=== PATIENT | female | born 1950 | race Caucasian/White ===

== ENCOUNTER → 2018-12-15 | Outpatient (CLI) | payer MEDICARE, OTHER ==
[2018-12-15 13:44] LABS: Protein, Urine Random <5.0 mg/dL (0.0-11.9)
[2018-12-15 14:04] LABS: Red Blood Cells, Urine 0-2 /hpf (0-2); White Blood Cells, Urine 0-2 /hpf (0-5)
[2018-12-15 14:05] LABS: Bacteria Rare /hpf; Squamous Epithelial Cells Rare /hpf (Few)
== END | disposition home or self-care (01) ==
LOC: LAB SHORT 12:56 → LAB 12:56
PROVIDERS: Internal Medicine
DX: N18.3 Chronic kidney disease, stage 3 (moderate) (principal)
CPT/HCPCS: 81015; 82570; 84156

== ENCOUNTER → 2021-04-11 | Outpatient (CLI) | payer MEDICARE ==
[2021-04-11 16:24] LABS: Alanine Aminotransfer (ALT/SGP 37 U/L (12-78); Albumin, Blood 3.7 g/dL (3.4-5.0); Albumin/Globulin Ratio 0.8 (0.8-1.8); Alk Phos 50 U/L (50-136); Anion Gap 3 mmol/L (6-16); Aspartate Aminotrans (AST/SGOT 31 U/L (12-37); Bilirubin, Total 0.4 mg/dL (0.1-1.0); Blood Urea Nitrogen 10 mg/dL (8-24); Bun/Creatinine Ratio 11.5 (12.0-20.0); CO2, Blood 27 mmol/L (21-32); Calcium, Blood 9.4 mg/dL (8.5-10.1); Chloride, Blood 109 mmol/L (98-108); Creatinine, Blood 0.87 mg/dL (0.40-1.00); Globulin, Blood 4.7 g/dL (2.2-4.0); Glomerular Filtration Rate >60 (60-); Glucose, Blood 96 mg/dL (70-99); Potassium, Blood 4.3 mmol/L (3.5-5.5); Sodium, Blood 139 mmol/L (136-145); Thyroid Stimulating Hormone 0.215 uIU/mL (0.360-4.800); Total Protein, Blood 8.4 g/dL (6.4-8.2)
== END | disposition home or self-care (01) ==
LOC: LAB 15:04 → LAB SHORT 15:04
PROVIDERS: Family Medicine
DX: I12.9 Hypertensive chronic kidney disease with stage 1 through stage 4 chronic kidney disease, or unspecified chronic kidney disease (principal); N18.2 Chronic kidney disease, stage 2 (mild); E03.9 Hypothyroidism, unspecified; E78.5 Hyperlipidemia, unspecified
CPT/HCPCS: 80053; 82043; 84439; 84443

== ENCOUNTER → 2022-02-06 | Outpatient (CLI) | payer MEDICARE | END | disposition home or self-care (01) | LOC: LAB SHORT 16:00 | DX: E03.9 Hypothyroidism, unspecified (principal) | CPT/HCPCS: 84443 ==

== ENCOUNTER → 2022-11-12 | Outpatient (CLI) | payer MEDICARE, OTHER ==
[2022-11-12 13:44] LABS: BASOPHILS ABSOLUTE AUTO 0.08 K/mm3 (0.00-0.23); BASOPHILS PERCENT AUTO 1 % (0-2); EOSINOPHILS ABSOLUTE AUTO 0.77 K/mm3 (0.00-0.68); EOSINOPHILS PERCENT AUTO 9 % (0-6); Hematocrit 39.9 % (33.0-51.0); Hemoglobin 12.8 g/dL (11.5-16.0); IMMATURE GRAN ABSOLUTE AUTO 0.02 K/mm3 (0.00-0.10); IMMATURE GRAN PERCENT AUTO 0 % (0-1); LYMPHOCYTES ABSOLUTE AUTO 2.42 K/mm3 (0.84-5.20); LYMPHOCYTES PERCENT AUTO 28 % (21-46); MONOCYTES ABSOLUTE AUTO 0.85 K/mm3 (0.16-1.47); MONOCYTES PERCENT AUTO 10 % (4-13); Mean Corpuscular HGB 30.1 pg (26.0-34.0); Mean Corpuscular HGB Conc 32.1 g/dL (31.5-36.5); Mean Corpuscular Volume 94 fL (80-100); NEUTROPHILS ABSOLUTE AUTO 4.64 K/mm3 (1.96-9.15); NEUTROPHILS PERCENT AUTO 53 % (41-73); Platelet Count 251 K/mm3 (150-400); RDW Standard Deviation 44.6 fL (35.1-46.3); Red Blood Cell Count 4.25 M/mm3 (3.80-5.20); White Blood Cell Count 8.78 K/mm3 (4.00-11.30)
== END | disposition home or self-care (01) ==
LOC: LAB SHORT 12:01 → LAB 12:01
PROVIDERS: Nurse Practitioner Family
DX: I10 Essential (primary) hypertension (principal)
CPT/HCPCS: 85025

== ENCOUNTER 2023-01-07 08:46 | Day surgery (SDC) | payer MEDICARE, OTHER ==
[~2023-01-07] VITALS: Ht 160 cm; Wt 69.6 kg
[2023-01-07] VITALS (14 sets, daily range): BP systolic 81–141; BP diastolic 38–75
[~2023-01-07 08:46] MED LIST: Crestor20 MG PO; EUTHYROX75 MCG PO; FENO48 PO; LOSA50 PO; SPIR25 PO; UBID100 PO
[2023-01-07] MEDS ORDERED: Calcium Carbon500 MG PO (09:35)
[2023-01-07] MEDS ORDERED: ACETAMINOPHEN500 MG PO (09:36)
--- NOTE | 2023-01-07 09:46 | NUR ---
PATIENT REPORTS HAVING A RIDE ARRANGED WITH HER SON, CAHRLY.
--- NOTE | 2023-01-07 10:20 | NUR ---
01/07/23 1020 Tyler Corrales HISTORY, CHART, MEDICATIONS AND ALLERGIES REVIEWED BEFORE START OF PROCEDURE. PATIENT CONFIRMS NPO STATUS AND AGREES WITH SCHEDULED PROCEDURE. 3-LEAD EKG REVIEWED WITH PHYSICIAN PRIOR TO START OF PROCEDURE. MONITOR INTACT WITH CONTINUOUS PULSE OXIMETRY,CAPNOGRAPHY, 3-LEAD EKG, INTERMITTENT BP. SUPPLEMENTAL O2 TO BE TITRATED THROUGHOUT PROCEDURE TO MAINTAIN O2 SATURATION ABOVE 90%. PATIENT DETERMINED TO BE ASA APPROPRIATE FOR PROPOFOL SEDATION PRIOR TO START OF PROCEDURE BY
--- NOTE | 2023-01-07 10:58 | NUR ---
DISCHARGE SUMMARY PT A&OX4, VSS/RA, YVONNE PO, AMB IND/DRESSED SELF, DENIES PAIN, DENIES NEED TO VOID, IV DC'D. DC INS PROVIDED. PT REP UNDERSTANDING THOSE INSTRUCTIONS INCLUDING NO FU APPT, 5 YR SCOPE, WHEN TO CALL THE DRSonja LEFT VIA WC WITH DC VOL TO GO HOME WITH BRIQUETTER OPERATOR/CHARLY, WITH DC INS.
== END 2023-01-07 22:43 | disposition home or self-care (01) ==
LOC: ORSCMMR 08:46 → ORD 10:00 → ORSCMMR 10:00
PROVIDERS: Internal Medicine Gastroenterology
PROC: 0DJD8ZZ Inspection of Lower Intestinal Tract, Via Natural or Artificial Opening Endoscopic (ICD-10-PCS; principal; 2023-01-07 10:00)
DX: K62.5 Hemorrhage of anus and rectum (principal); K64.8 Other hemorrhoids; K57.30 Diverticulosis of large intestine without perforation or abscess without bleeding; I10 Essential (primary) hypertension; E78.00 Pure hypercholesterolemia, unspecified; E03.9 Hypothyroidism, unspecified; Z87.891 Personal history of nicotine dependence; Z79.899 Other long term (current) drug therapy
CPT/HCPCS: J2704; J7120

== ENCOUNTER 2023-01-15 00:20 | Inpatient (IN) | payer MEDICARE, OTHER ==
[~2023-01-15] VITALS: Ht 162.6 cm; Wt 73.5 kg
[~2023-01-15 00:20] MED LIST changes: +ACETAMINOPHEN500 MG PO; +Calcium Carbon500 MG PO
[2023-01-15 07:11] LABS: Albumin, Blood 3.6 g/dL (3.4-5.0); Albumin/Globulin Ratio 0.8 (0.8-1.8); BASOPHILS ABSOLUTE AUTO 0.08 K/mm3 (0.00-0.23); BASOPHILS PERCENT AUTO 1 % (0-2); Bilirubin, Total 0.4 mg/dL (0.1-1.0); Bun/Creatinine Ratio 16.7 (12.0-20.0); Calcium, Blood 10.9 mg/dL (8.5-10.1); Creatinine, Blood 0.9 mg/dL (0.40-1.00); EOSINOPHILS ABSOLUTE AUTO 0.73 K/mm3 (0.00-0.68); EOSINOPHILS PERCENT AUTO 5 % (0-6); Globulin, Blood 4.6 g/dL (2.2-4.0); Hematocrit 40.1 % (33.0-51.0); Hemoglobin 13.6 g/dL (11.5-16.0); IMMATURE GRAN ABSOLUTE AUTO 0.06 K/mm3 (0.00-0.10); IMMATURE GRAN PERCENT AUTO 0 % (0-1); LYMPHOCYTES PERCENT AUTO 24 % (21-46); MONOCYTES ABSOLUTE AUTO 1.25 K/mm3 (0.16-1.47); MONOCYTES PERCENT AUTO 9 % (4-13); Mean Corpuscular HGB Conc 33.9 g/dL (31.5-36.5); Mean Corpuscular Volume 89 fL (80-100); Mean Platelet Volume 9.6 fL (9.1-12.4); NEUTROPHILS ABSOLUTE AUTO 9.15 K/mm3 (1.96-9.15); NEUTROPHILS PERCENT AUTO 62 % (41-73); Platelet Count 252 K/mm3 (150-400); Potassium, Blood 3.9 mmol/L (3.5-5.5); RDW Coefficient Variation 13.2 % (11.7-14.2); RDW Standard Deviation 43.4 fL (35.1-46.3); Red Blood Cell Count 4.53 M/mm3 (3.80-5.20); Total Protein, Blood 8.2 g/dL (6.4-8.2); White Blood Cell Count 14.77 K/mm3 (4.00-11.30)
[2023-01-15 08:08] VITALS: BP 154/96
[2023-01-15] MEDS ORDERED: OYSTER SHELL C500 MG PO (08:15)
[2023-01-15] MEDS ORDERED: Vitamin D1000 UNI1 PO (08:17)
[2023-01-15 10:51] LABS: Anti-Xa UFH, PHA Monitoring <0.10 IU/mL; International Normalized Ratio 1.02; Prothrombin Time Results 10.7 Sec (9.7-11.5)
[2023-01-15 13:46] VITALS: BP 128/89
[2023-01-15 16:39] VITALS: BP 123/89
--- NOTE | 2023-01-15 19:36 | NUR ---
PT ADMITTED TO PCU, ALERT ORIENTED AND ABLE TO USE CALL LIGHT FOR NEEDS. CARDIOLOGY CONSULTED AND IN TO SEE PT LATE IN THE AM. PLAN FOR ANGIOGRAM TOMORROW, NPO AFTER MIDNIGHT. PT HAS DENIED CHEST PAIN OR PRESSURE T/O THE SHIFT. HEPARIN GTT INFUSING PER MD ORDERS. SEE DOCUMENTED VS AND ASSESSMENT. REPORT GIVEN TO KRYS HYLTON SHIFT RN. CALL LIGHTIN REACH.
[2023-01-15 20:43] VITALS: BP 101/71
--- NOTE | 2023-01-15 21:30 | NUR ---
CALL TO PHYSICIAN NOTIFIED PHYSICIAN THAT PT DID NOT RECEIVE ORDERED MEDICATION DURING DAYSHIFT. CLARIFIED IF PHYSICIAN WANTED THIS RN TO ADMINISTER MISSED MEDICATION, ORDERS PLACED.
[2023-01-15 23:08] VITALS: BP 93/63
[2023-01-16] VITALS (18 sets, daily range): BP systolic 73–111; BP diastolic 37–74
[2023-01-16 01:34] LABS: BASOPHILS ABSOLUTE AUTO 0.07 K/mm3 (0.00-0.23); BASOPHILS PERCENT AUTO 1 % (0-2); EOSINOPHILS ABSOLUTE AUTO 0.56 K/mm3 (0.00-0.68); EOSINOPHILS PERCENT AUTO 4 % (0-6); Hematocrit 41.6 % (33.0-51.0); Hemoglobin 13.9 g/dL (11.5-16.0); IMMATURE GRAN ABSOLUTE AUTO 0.04 K/mm3 (0.00-0.10); IMMATURE GRAN PERCENT AUTO 0 % (0-1); LYMPHOCYTES ABSOLUTE AUTO 4.52 K/mm3 (0.84-5.20); LYMPHOCYTES PERCENT AUTO 32 % (21-46); MONOCYTES ABSOLUTE AUTO 1.23 K/mm3 (0.16-1.47); MONOCYTES PERCENT AUTO 9 % (4-13); Mean Corpuscular HGB 29.6 pg (26.0-34.0); Mean Corpuscular HGB Conc 33.4 g/dL (31.5-36.5); Mean Corpuscular Volume 89 fL (80-100); Mean Platelet Volume 9.8 fL (9.1-12.4); NEUTROPHILS ABSOLUTE AUTO 7.86 K/mm3 (1.96-9.15); NEUTROPHILS PERCENT AUTO 55 % (41-73); Platelet Count 250 K/mm3 (150-400); RDW Coefficient Variation 13.2 % (11.7-14.2); RDW Standard Deviation 43.1 fL (35.1-46.3); White Blood Cell Count 14.28 K/mm3 (4.00-11.30)
[2023-01-16 02:00] LABS: Alanine Aminotransfer (ALT/SGP 21 U/L (12-78); Albumin, Blood 3.2 g/dL (3.4-5.0); Albumin/Globulin Ratio 0.7 (0.8-1.8); Alk Phos 46 U/L (50-136); Anion Gap 7 mmol/L (6-16); Aspartate Aminotrans (AST/SGOT 33 U/L (12-37); Bilirubin, Total 0.5 mg/dL (0.1-1.0); Blood Urea Nitrogen 13 mg/dL (8-24); Bun/Creatinine Ratio 15.2 (12.0-20.0); CHOL/HDL RATIO 2.9; CO2, Blood 23 mmol/L (21-32); Calcium, Blood 9.2 mg/dL (8.5-10.1); Chloride, Blood 104 mmol/L (98-108); Cholesterol 100 mg/dL (50-200); Creatinine, Blood 0.86 mg/dL (0.40-1.00); Globulin, Blood 4.5 g/dL (2.2-4.0); Glomerular Filtration Rate 72 (60-); Glucose, Blood 104 mg/dL (70-99); HDL Cholesterol 34 mg/dL (>39); LDL/HDL RATIO 1.2; Low Density Lipoprotein Chol 39 mg/dL (0-110); Potassium, Blood 3.9 mmol/L (3.5-5.5); Sodium, Blood 134 mmol/L (136-145); Total Protein, Blood 7.7 g/dL (6.4-8.2); Triglycerides 134 mg/dL (30-160); Very Low Density Lipoprot Chol 26 mg/dL (6-32)
--- NOTE | 2023-01-16 04:35 | NUR ---
SHIFT SUMMARY PT A&Ox4, CALLS AND COMMUNICATES NEEDS APPROPRIATELY. BP STABLE, SINUS 70-90's, DENIES CP/PRESSURE. SpO2> 92% RA, DENIES SOB. PT WITH C/O NAUSEA, NO VOMITING, MEDICATED PER EMAR. SBA IN ROOM. CONTINENT OF URINE AND BOWEL. HEPARIN gtt INFUSING PER EMAR, MANAGED BY PHARMACY. NPO AT 0000. NO OTHER EVENTS, WILL REPORT TO ONCOMING RN.
[2023-01-16 09:05] LABS: Source, Urine Clean Catch
[2023-01-16 09:06] LABS: Appearance, Urine Clear (Clear); Bilirubin, Urine Neg (Neg); Blood, Urine 1+ (Neg); Color, Urine Yellow (P-Yellow); Glucose Qualitative, Urine Neg (Neg); Ketones, Urine Neg (Neg); Leukocyte Esterase, Urine 2+ (Neg); Nitrite, Urine Neg (Neg); Protein, Urine Neg (Neg); Urobilinogen, Urine NORM (Normal)
[2023-01-16 09:14] LABS: Bacteria Rare /hpf; Red Blood Cells, Urine 0-2 /hpf (0-2); Squamous Epithelial Cells Few /hpf (Few)
[2023-01-16 09:15] LABS: Transitional Epithelial Cells Rare /hpf (0-Rare)
--- NOTE | 2023-01-16 17:29 | NUR ---
ASSUMED CARE OF PT AT 0700 THIS AM. PT A&OX4, NPO SINCE [place], PT DENIES CHEST PAIN OR PRESSURE THIS AM. PT TO WEAVING MACHINE OPERATOR APROX 1000, RETURNED JUST AFTER 1100. NO INTERVENTIONS, R RADIAL SITE RECOVERED W/O ANY COMPLICATIONS NOTED. PT DID HAVE LOW BLOOD PRESSURES AFTER RETURNING FROM WEAVING MACHINE OPERATOR, DR THAYER NOTIFIED AND ORDERS RECEIVED APROX 1230. DR THAYER UPDATED ON PT'S BLOOD PRESSURES APROX 1600, LOW BPs OK LONG MAP STAYS ABOVE 65. PLAN TO DISCHARGE TOMORROW IF BPs IMPROVED. NO OTHER ACUTE EVENTS. PT HAS BEEN PLEASANT, CALM AND COOPERATIVE T/O THE DAY. VERBALIZES UNDERSTANDING OF CARE PLAN. PT IS ABLE TO USE CALL LIGHT FOR NEEDS, CALL LIGHT IN REACH. SEE DOCUMENTED VS AND ASSESSMENT. WILL CONTINUE TO MONITOR AND GIVE REPORT TO NOC SHIFT RN.
--- NOTE | 2023-01-16 21:27 | NUR ---
ASSUMED CARE PT IS A&O; MAP >65; SPO2 >92% ON RA. PT DENIES CP, SOB, [place], OR NAUSEA. PT STATES "I FEEL PRETTY GOOD". RIGHT RADIAL SITE IS FREE OF OOZING/HEMATOMA.
[2023-01-17 04:03] VITALS: BP 92/57
[2023-01-17 04:33] LABS: BASOPHILS ABSOLUTE AUTO 0.06 K/mm3 (0.00-0.23); BASOPHILS PERCENT AUTO 1 % (0-2); EOSINOPHILS ABSOLUTE AUTO 0.78 K/mm3 (0.00-0.68); EOSINOPHILS PERCENT AUTO 8 % (0-6); Hematocrit 37.9 % (33.0-51.0); Hemoglobin 12.3 g/dL (11.5-16.0); IMMATURE GRAN ABSOLUTE AUTO 0.03 K/mm3 (0.00-0.10); IMMATURE GRAN PERCENT AUTO 0 % (0-1); LYMPHOCYTES PERCENT AUTO 40 % (21-46); MONOCYTES ABSOLUTE AUTO 1.02 K/mm3 (0.16-1.47); MONOCYTES PERCENT AUTO 11 % (4-13); Mean Corpuscular HGB 29.8 pg (26.0-34.0); Mean Corpuscular HGB Conc 32.5 g/dL (31.5-36.5); Mean Corpuscular Volume 92 fL (80-100); Mean Platelet Volume 9.8 fL (9.1-12.4); NEUTROPHILS ABSOLUTE AUTO 3.94 K/mm3 (1.96-9.15); NEUTROPHILS PERCENT AUTO 41 % (41-73); Platelet Count 227 K/mm3 (150-400); RDW Coefficient Variation 13.4 % (11.7-14.2); RDW Standard Deviation 45.7 fL (35.1-46.3); Red Blood Cell Count 4.13 M/mm3 (3.80-5.20); White Blood Cell Count 9.63 K/mm3 (4.00-11.30)
[2023-01-17 04:57] LABS: Anion Gap 5 mmol/L (6-16); Blood Urea Nitrogen 19 mg/dL (8-24); Bun/Creatinine Ratio 18.8 (12.0-20.0); CO2, Blood 26 mmol/L (21-32); Calcium, Blood 8.6 mg/dL (8.5-10.1); Chloride, Blood 111 mmol/L (98-108); Creatinine, Blood 1.01 mg/dL (0.40-1.00); Glomerular Filtration Rate 59 (60-); Glucose, Blood 74 mg/dL (70-99); Phosphorus, Blood 3.3 mg/dL (2.5-4.9); Potassium, Blood 4.2 mmol/L (3.5-5.5); Sodium, Blood 142 mmol/L (136-145)
--- NOTE | 2023-01-17 05:19 | NUR ---
SHIFT SUMMARY PT SLEPT/RESTED QUIETLY FOR MAJORITY OF SHIFT. SPO2 >92% ON RA; MAP >65; NSR. NO ACUTE EVENTS OVERNIGHT. RIGHT RADIAL SITE UNCHANGED FROM START OF SHIFT.
[2023-01-17 07:57] VITALS: BP 117/66
[2023-01-17 10:11] VITALS: BP 120/72
--- NOTE | 2023-01-17 10:36 | NUR ---
ASSUMED CARE OF PT AT 0700 THIS AM. BPs ARE IMPROVED, PT DENIES CHEST PAIN OR PRESSURE, R RADIAL SITE WNL. DR THAYER NOTIFIED AND PLAN IS TO DISCHARGE TODAY.
[2023-01-17] MEDS ORDERED: ASPI81CH PO (12:12)
[2023-01-17] MEDS ORDERED: CLOP75 PO (12:13)
[2023-01-17] MEDS ORDERED: METO25ER PO (12:14)
[2023-01-17] MEDS ORDERED: VISBIOME 112.51 EACH PO (12:16)
[2023-01-17] MEDS ORDERED: CEPH500 PO (12:16)
[2023-01-17 13:00] VITALS: BP 122/76
--- NOTE | 2023-01-17 14:48 | NUR ---
DISCHARGE UPDATE DISCHARGE PACKET GONE OVER WITH PT AND 2 FAMILY MEMBERS AT 1410. PT DISCHARGED AFTER ZIO PATCH APPLIED BY HC RN. AFTER DISCHARGE INSTRUCTIONS WERE DONE, PT ASKED ABOUT "THE PATCH THAT THE DOCTOR WANTED ME TO WEAR TO MONITOR MY HEART." THIS RN CONTACTED PT'S PRIMRY RN ABOUT ZIO PATCH. PRIMARY RN IN ISO ROOM RAPID RESPONSE AT TIME OF ZIO PATCH ORDER. PAPER INSPECTOR CONTACTED FOR ZIO PATCH. PT HAD ARM BOARD IN PLACE ON RIGHT WRIAT FOR ANGIO SITE. SITE C/D/I. CLEAR TEGADERM IN PLACE. DISCHARGE PACKET WITH PT DURING DISCHARGE.
[2023-01-21 12:12] LABS: METANEPH/CREAT RATIO 0.6 (0.0-1.0)
== END 2023-01-17 14:35 | disposition home or self-care (01) | DRG 281 ==
LOC: ER 00:20 → PCU 00:21
PROVIDERS: Emergency Medicine; Family Medicine; Internal Medicine Cardiovascular Disease; ADMIT Internal Medicine
PROC: 4A023N7 Measurement of Cardiac Sampling and Pressure, Left Heart, Percutaneous Approach (ICD-10-PCS; principal; 2023-01-16)
PROC: B2111ZZ Fluoroscopy of Multiple Coronary Arteries using Low Osmolar Contrast (ICD-10-PCS; 2023-01-16)
PROC: B240ZZ3 Ultrasonography of Single Coronary Artery, Intravascular (ICD-10-PCS; 2023-01-16)
DX: I21.4 Non-ST elevation (NSTEMI) myocardial infarction (principal); I13.0 Hypertensive heart and chronic kidney disease with heart failure and stage 1 through stage 4 chronic kidney disease, or unspecified chronic kidney disease; I16.1 Hypertensive emergency; I50.20 Unspecified systolic (congestive) heart failure; I25.10 Atherosclerotic heart disease of native coronary artery without angina pectoris; Z66 Do not resuscitate; I35.0 Nonrheumatic aortic (valve) stenosis; R51.9 Headache, unspecified; I73.9 Peripheral vascular disease, unspecified; I48.91 Unspecified atrial fibrillation; D72.829 Elevated white blood cell count, unspecified; J44.9 Chronic obstructive pulmonary disease, unspecified; R73.03 Prediabetes; E66.3 Overweight; I16.0 Hypertensive urgency; M25.511 Pain in right shoulder; G89.29 Other chronic pain; E78.00 Pure hypercholesterolemia, unspecified; N32.9 Bladder disorder, unspecified; N18.9 Chronic kidney disease, unspecified; E03.9 Hypothyroidism, unspecified; Z87.820 Personal history of traumatic brain injury; Z79.899 Other long term (current) drug therapy; Z79.890 Hormone replacement therapy; Z79.01 Long term (current) use of anticoagulants; Z79.82 Long term (current) use of aspirin; Z88.2 Allergy status to sulfonamides; Z88.8 Allergy status to other drugs, medicaments and biological substances; Z98.890 Other specified postprocedural states; Z87.891 Personal history of nicotine dependence; Z68.26 Body mass index [BMI] 26.0-26.9, adult; Z91.81 History of falling
CPT/HCPCS: 36415; 70450; 71046; 76937; 80053; 80061; 80069; 81001; 82384; 82533; 82570; 83835; 84443; 84484; 85025; 85347; 85520; 85610; 85730; 87086; 87147; 92978; 93005; 93010; 93242; 93306; 93454; 93975; 96374; 96375; 99152; 99153; 99285-25; A9270; C1753; C1769; C1887; C1894; G0378; J0696; J1644; J2250; J2371; J2405; J3010; J7030; J7040; J7050; Q9967

== ENCOUNTER 2023-06-17 07:38 | Emergency (ER) | payer MEDICARE, OTHER ==
[~2023-06-17] VITALS: Ht 162.6 cm; Wt 71.2 kg
[~2023-06-17 07:38] MED LIST changes: +ASPI81CH PO; +CEPH500 PO; +CLOP75 PO; +METO25ER PO; +OYSTER SHELL C500 MG PO; +VISBIOME 112.51 EACH PO; +Vitamin D1000 UNI1 PO
[2023-06-17 08:59] LABS: Influenza A, PCR NEGATIVE (NEGATIVE); Influenza B, PCR NEGATIVE (NEGATIVE); Resp Syncytial Virus, PCR NEGATIVE (NEGATIVE); SARS-Cov-2 (COVID-19) PCR, MMC NEGATIVE (NEGATIVE)
[2023-06-17] MEDS ORDERED: TIZA4 PO (09:18)
[2023-06-17] MEDS ORDERED: SPIR25 PO (09:19)
[2023-06-17] MEDS ORDERED: PANT40 PO (09:19)
[2023-06-17] MEDS ORDERED: LOSA50 PO (09:20)
[2023-06-17 09:28] LABS: Source, Urine Voided
[2023-06-17 09:37] LABS: Appearance, Urine Clear (Clear); Bilirubin, Urine Neg (Neg); Blood, Urine Neg (Neg); Color, Urine Yellow (P-Yellow); Glucose Qualitative, Urine Neg (Neg); Ketones, Urine Neg (Neg); Leukocyte Esterase, Urine Neg (Neg); Nitrite, Urine Neg (Neg); Protein, Urine Neg (Neg); Specific Gravity, Urine 1.005 (1.003-1.022); Urobilinogen, Urine NORM (Normal)
[2023-06-17 11:00] VITALS: BP 152/74
== END 2023-06-17 11:13 | disposition home or self-care (01) ==
LOC: ER 07:38
PROVIDERS: Emergency Medicine
DX: R07.89 Other chest pain (principal); R51.9 Headache, unspecified; I10 Essential (primary) hypertension; E78.5 Hyperlipidemia, unspecified; E03.9 Hypothyroidism, unspecified; Z11.52 Encounter for screening for COVID-19; Z88.2 Allergy status to sulfonamides; Z88.8 Allergy status to other drugs, medicaments and biological substances; Z79.890 Hormone replacement therapy; Z79.82 Long term (current) use of aspirin; Z79.02 Long term (current) use of antithrombotics/antiplatelets; Z79.899 Other long term (current) drug therapy
CPT/HCPCS: 0241U; 71045; 81003; 84484; 93005; 93010; 99285-25

== ENCOUNTER 2023-07-18 11:35 | Emergency (ER) | payer MEDICARE, OTHER ==
[~2023-07-18] VITALS: Ht 162.6 cm; Wt 71.7 kg
[~2023-07-18 11:35] MED LIST changes: +PANT40 PO; +TIZA4 PO
[2023-07-18 12:06] VITALS: BP 152/89
[2023-07-18] MEDS ORDERED: Lidocaine 4% 1 Patch TOP ONE (13:20)
[2023-07-18] MEDS ORDERED: Acetaminophen 500 MG Tab PO ONE (13:20)
[2023-07-18] MEDS ORDERED: LIDO700A20 TOP (13:27)
== END 2023-07-18 13:44 | disposition home or self-care (01) ==
LOC: ER 11:35
DX: S22.42XA Multiple fractures of ribs, left side, initial encounter for closed fracture (principal); M62.838 Other muscle spasm; W18.30XA Fall on same level, unspecified, initial encounter; Z88.2 Allergy status to sulfonamides; Z88.8 Allergy status to other drugs, medicaments and biological substances; Z79.899 Other long term (current) drug therapy; Z79.82 Long term (current) use of aspirin; E03.9 Hypothyroidism, unspecified; I10 Essential (primary) hypertension; E78.5 Hyperlipidemia, unspecified
CPT/HCPCS: 71101; 72125; 99284-25; A9270

== ENCOUNTER 2024-04-03 14:31 | Observation (INO) | payer MEDICARE, OTHER ==
[~2024-04-03] VITALS: Ht 162.6 cm; Wt 69.6 kg
[~2024-04-03 14:31] MED LIST changes: +LIDO700A20 TOP
[2024-04-03] MEDS ORDERED: Ondansetron HCl 2 MG / ML 2ML Vial IV ONE (15:20)
[2024-04-03 15:36] LABS: Calcium, Ionized (POC) 1.22 mmol/L (1.10-1.46); Chloride (POC) 105 mmol/L (98-108); Creatinine (POC) 0.9 mg/dL (0.6-1.0); Glucose (ISTAT POC) 128 mg/dL (70-99); Potassium (POC) 4.5 mmol/L (3.5-5.5); Sodium (POC) 138 mmol/L (135-148); Total CO2 (POC) 24 mmol/L (21-32)
[2024-04-03 15:39] LABS: BASOPHILS ABSOLUTE AUTO 0.04 K/mm3 (0.00-0.23); BASOPHILS PERCENT AUTO 0 % (0-2); EOSINOPHILS ABSOLUTE AUTO 0.35 K/mm3 (0.00-0.68); EOSINOPHILS PERCENT AUTO 2 % (0-6); Hematocrit 42.5 % (33.0-51.0); Hemoglobin 14.3 g/dL (11.5-16.0); IMMATURE GRAN ABSOLUTE AUTO 0.04 K/mm3 (0.00-0.10); IMMATURE GRAN PERCENT AUTO 0 % (0-1); LYMPHOCYTES ABSOLUTE AUTO 4.52 K/mm3 (0.84-5.20); LYMPHOCYTES PERCENT AUTO 31 % (21-46); MONOCYTES ABSOLUTE AUTO 0.83 K/mm3 (0.16-1.47); MONOCYTES PERCENT AUTO 6 % (4-13); Mean Corpuscular HGB 30.8 pg (26.0-34.0); Mean Corpuscular HGB Conc 33.6 g/dL (31.5-36.5); Mean Corpuscular Volume 91 fL (80-100); Mean Platelet Volume 9.2 fL (9.1-12.4); NEUTROPHILS ABSOLUTE AUTO 8.65 K/mm3 (1.96-9.15); NEUTROPHILS PERCENT AUTO 60 % (41-73); Platelet Count 244 K/mm3 (150-400); RDW Coefficient Variation 13.2 % (11.7-14.2); RDW Standard Deviation 44.2 fL (35.1-46.3); Red Blood Cell Count 4.65 M/mm3 (3.80-5.20); White Blood Cell Count 14.43 K/mm3 (4.00-11.30)
[2024-04-03 16:00] LABS: Albumin, Blood 3.7 g/dL (3.4-5.0); Bilirubin, Total 0.4 mg/dL (0.1-1.0); Bun/Creatinine Ratio 28.2 (12.0-20.0); Calcium, Blood 9.9 mg/dL (8.5-10.1); Creatinine, Blood 0.82 mg/dL (0.40-1.00); Globulin, Blood 3.6 g/dL (2.2-4.0); Potassium, Blood 4.5 mmol/L (3.5-5.5); Total Protein, Blood 7.3 g/dL (6.4-8.2)
[2024-04-03] MEDS ORDERED: Aspirin 81 MG Chew PO ONE (18:50)
[2024-04-03] MEDS ORDERED: Ondansetron HCl 2 MG / ML 2ML Vial IV PRN (20:30)
[2024-04-03] MEDS ORDERED: TiZANidine HCl 4 MG Tab PO PRN (20:40)
[2024-04-03] MEDS ORDERED: FENO48 PO (21:03)
[2024-04-03 21:31] VITALS: BP 135/78
[2024-04-03] MEDS ORDERED: FLU VACC TS2024-25(6MOS UP)/PF 45 MCG/0.5 ML SYRINGE IM ONE (22:00)
[2024-04-03] MEDS ORDERED: Nitroglycerin 0.4 MG SUBL SL PRN (22:45)
[2024-04-03] MEDS ORDERED: Morphine Sulfate 4 MG/1 ML Injection IV PRN (23:30)
[2024-04-04 03:21] VITALS: BP 129/81
--- NOTE | 2024-04-04 05:29 | NUR ---
SHIFT SUMMARY NOC PT A/O X 4. PLEASANT AND COOPERATIVE WITH CARE. VSS. INDEPENDENT/CONTINENT. ADMIT FROM ED FOR CHEST PAIN/SOB/SYNCOPE EPISODE. PER ED RN REPORT WHEN NURSING STAFF [facility] PT HAD VAGAL RESPONSE AND WAS POSSIBLY PULSELESS FOR 1 MINUTE, PT MOVED TO BED AND BECAME AROUSABLE AGAIN. UPON ADMIT TO FLOOR PT STATED THAT THEY HAVE HAD CONSTANT L SHOULDER DISCOMFORT SINCE EXPERIENCING ANGINA EARLIER IN DAY. PT GIVEN ZANAFLEX TO HELP RELIEVE DISCOMFORT. NITRO ALSO ORDERED IN CASE CP RETURNS. PT HAS BEEN NPO SINCE MIDNIGHT FOR STRESS TEST TODAY. ON TELE SINUS RHYTHM IN 60'S. PT CURRENTLY RESTING WITH BED IN LOWEST POSITION, AND CALL LIGHT WITHIN REACH.
[2024-04-04 05:31] LABS: Hematocrit 39.9 % (33.0-51.0); Hemoglobin 13.3 g/dL (11.5-16.0); Mean Corpuscular HGB 30.6 pg (26.0-34.0); Mean Corpuscular HGB Conc 33.3 g/dL (31.5-36.5); Mean Corpuscular Volume 92 fL (80-100); Mean Platelet Volume 9.3 fL (9.1-12.4); Platelet Count 210 K/mm3 (150-400); RDW Coefficient Variation 13.2 % (11.7-14.2); RDW Standard Deviation 44.6 fL (35.1-46.3); Red Blood Cell Count 4.35 M/mm3 (3.80-5.20); White Blood Cell Count 9.75 K/mm3 (4.00-11.30)
[2024-04-04 05:42] LABS: Bun/Creatinine Ratio 20.4 (12.0-20.0); Calcium, Blood 9.6 mg/dL (8.5-10.1); Creatinine, Blood 1.03 mg/dL (0.40-1.00); Potassium, Blood 4.3 mmol/L (3.5-5.5)
[2024-04-04] MEDS ORDERED: Pantoprazole Sodium 40 MG Tab PO SCH (06:00)
[2024-04-04] MEDS ORDERED: Levothyroxine Sodium 0.075 MG Tab PO SCH (06:00)
[2024-04-04 07:28] VITALS: BP 119/75
[2024-04-04] MEDS ORDERED: Enoxaparin 40 MG/0.4 ML SYR SC SCH (09:00)
[2024-04-04] MEDS ORDERED: Metoprolol Succinate 25 MG TABCR PO SCH (09:00)
[2024-04-04] MEDS ORDERED: Atorvastatin 40 MG Tab PO SCH (09:00)
[2024-04-04] MEDS ORDERED: Spironolactone 25 MG Tab PO SCH (09:00)
[2024-04-04] MEDS ORDERED: Aspirin 81 MG Chew PO SCH (09:00)
[2024-04-04] MEDS ORDERED: Losartan Potassium 50 MG Tab PO SCH (09:00)
[2024-04-04] MEDS ORDERED: Fenofibrate 67 MG Cap PO SCH (09:00)
[2024-04-04] MEDS ORDERED: Caffeine Citrated 60 MG/3 ML Vial ONE (11:34)
[2024-04-04] MEDS ORDERED: Regadenoson 0.4 MG/5 ML SYRINGE ONE (11:35)
--- NOTE | 2024-04-04 16:52 | NUR ---
DISCHARGE NOTE PATIENT A/OX4, ABLE TO MAKE NEEDS KNOWN. PLEASANT AND TALKATIVE WITH STAFF. INDEPENDENT IN ROOM. HAD NUCLEAR STRESS TEST TODAY, RESULTS NEGATIVE AND DISCHARGE ORDER PLACED ONCE RESULTS RECIEVED. PATIENT DENIES CHEST PAIN OR HEADACHE THIS SHIFT, STATES ALL SYMPTOMS HAVE RESOLVED. PIV AND TELEMETRY REMOVED PRIOR TO DISCHARGE. NO NEW MEDICATIONS ORDERED. PATIENT EDUCATED ON DISCHARGE INSTRUCTIONS TO SCHEDULE WITH PRIMARY CARE PROVIDER WITHIN 1 WEEK. PATIENT WITH NO QUESTIONS AT TIME OF DISCHARGE. ASSISTED TO FAMILY VEHICLE WITH ALL BELONGINGS IN HAND.
== END 2024-04-04 16:19 | disposition home or self-care (01) ==
LOC: ER 14:31 → ERHOLD 14:32 → MEDS 14:32
PROVIDERS: Nurse Practitioner Acute Care; Physician Assistant; Student in an Organized Health Care Education/Training Program; ADMIT Internal Medicine
DX: I25.110 Atherosclerotic heart disease of native coronary artery with unstable angina pectoris (principal); R55 Syncope and collapse; E78.5 Hyperlipidemia, unspecified; I10 Essential (primary) hypertension; E03.9 Hypothyroidism, unspecified; K21.9 Gastro-esophageal reflux disease without esophagitis; Z79.899 Other long term (current) drug therapy; Z88.2 Allergy status to sulfonamides; Z88.8 Allergy status to other drugs, medicaments and biological substances
CPT/HCPCS: 36415; 71045; 78452; 80047; 80048; 80053; 83880; 84484; 85014; 85025; 85027; 90656; 92950; 93005; 93010; 93017; 96372; 99285-25; A9270; A9500; G0378; J0706; J1650; J2785